=== PATIENT | male | born 1960 | race Caucasian/White ===

== ENCOUNTER 2016-12-16 05:35 | Day surgery (SDC) | payer BC ==
[~2016-12-16] VITALS: Ht 185.4 cm; Wt 103.3 kg
[~2016-12-16 05:35] MED LIST: NO HOME MEDICATIONS
[2016-12-16 06:27] VITALS: BP 120/77; PULSE 75; TEMP 97.3
[2016-12-16 09:55] VITALS: BP 99/63; PULSE 63; TEMP 97.8
[2016-12-16 10:01] VITALS: TEMP 97.8
[2016-12-16 10:10] VITALS: BP 108/71; PULSE 67
[2016-12-16 10:25] VITALS: BP 115/77; PULSE 62
[2016-12-16 10:40] VITALS: BP 100/61; PULSE 56
== END 2016-12-16 11:41 | disposition home or self-care (01) ==
LOC: SDCO 05:35
DX: K40.90 Unilateral inguinal hernia, without obstruction or gangrene, not specified as recurrent (principal); Z09 Encounter for follow-up examination after completed treatment for conditions other than malignant neoplasm; Z86.010 Personal history of colon polyps; K63.5 Polyp of colon; Z90.81 Acquired absence of spleen
CPT/HCPCS: A4315; C1781; J0690; J1100; J1885; J2405; J2704; J2710; J3010; J7120

== ENCOUNTER 2023-03-12 06:50 | Emergency (ER) | payer OTHER ==
[~2023-03-12] VITALS: Ht 188 cm; Wt 102.3 kg
[2023-03-12 06:57] VITALS: TEMP 98.1
[2023-03-12 07:27] LABS: COLLECTION METHOD CLEAN CATCH
[2023-03-12 07:38] LABS: SQUAMOUS EPITHELIAL None Seen /hpf (0-10); URINE APPEARANCE Clear (CLEAR/HAZY); URINE BACTERIA Rare /hpf (NONE SEEN); URINE BLOOD Negative (NEGATIVE); URINE COLOR Yellow (YELLOW); URINE GLUCOSE Negative (NEGATIVE); URINE KETONE Negative (NEGATIVE); URINE NITRATE Negative (NEGATIVE); URINE PROTEIN(semi-quant) Negative (NEGATIVE); URINE RBC None Seen /hpf (0-2); URINE UROBILINOGEN 0.2 E.U/dL (0.2-1.0)
[2023-03-12 07:43] LABS: BASO % 0.3 % (0.0-2.0); EOS # 0.1 K/mm3 (0.0-0.7); EOS % 1.6 % (0.0-4.0); GRAN # 4.4 K/mm3 (1.4-6.5); GRAN % 63.1 % (42.2-75.2); HEMOGLOBIN 15.3 g/dl (13.5-18.0); LYMPH # 1.9 K/mm3 (1.2-3.4); LYMPH % 26.5 % (20.0-51.0); MEAN CELL VOLUME 92 fl (80.0-100.0); MEAN CORPUSCULAR HEMOGLOBIN 32 pg (27-31); MEAN CORPUSCULAR HGB CONC 35 g/dl (33.0-37.0); MONO # 0.6 K/mm3 (0.1-0.6); MONO % 8.2 % (1.7-9.3); PLATELET COUNT 426 K/mm3 (130-400); RED BLOOD COUNT 4.79 M/mm3 (4.20-5.60); REDCELL DISTRIBUTION WIDTH-CV 12.4 % (11.5-14.5)
[2023-03-12 07:54] LABS: TROPONIN-I < 0.010 ng/mL (0.00-0.033)
[2023-03-12 08:03] LABS: ALANINE AMINOTRANSFERASE 23 U/L (0-55); ALKALINE PHOSPHATASE 69 U/L (40-150); ANION GAP 10 mmol/L (7-16); AST,SGOT 19 U/L (5-34); BLOOD UREA NITROGEN 11 mg/dL (8-26); CARBON DIOXIDE 22 mmol/L (23-31); CHLORIDE 106 mmol/L (98-107); CREATININE, serum 0.89 mg/dL (0.72-1.25); GLUCOSE 99 mg/dL (70-99); LIPASE 37 U/L (8-78); POTASSIUM 4.1 mmol/L (3.5-4.5); SODIUM 138 mmol/L (136-145); TOTAL PROTEIN 7.4 gm/dL (6.2-8.1)
[2023-03-12 08:21] LABS: BILIRUBIN,DIRECT 0.4 mg/dL (0.0-0.5)
[2023-03-12 09:10] VITALS: BP 149/94; PULSE 54
== END 2023-03-12 09:16 | disposition home or self-care (01) ==
LOC: COL.ER 06:50
PROVIDERS: Emergency Medicine
DX: R10.11 Right upper quadrant pain (principal); Z90.49 Acquired absence of other specified parts of digestive tract